=== PATIENT | female | born 1970 | race Two or more races ===

== ENCOUNTER 2019-02-24 03:27 | Emergency (ER) | payer SELFPAY ==
[~2019-02-24] VITALS: Ht 170.2 cm; Wt 95.3 kg
[2019-02-24 03:43] VITALS: BP 160/81
[2019-02-24 04:08] LABS: Basophils # (auto) 0 uL; Basophils % (auto) 0.6 % (0.0-2.0); Eosinophils # (auto) 0.2 uL; Eosinophils % (auto) 2.2 % (0.0-7.0); Hematocrit 39.4 % (36.0-46.0); Hemoglobin 13.8 g/dL (12.2-16.2); Lymphocytes # (auto) 2.5 uL; Lymphocytes % (auto) 33.4 % (10.0-50.0); Mean Corpuscular Hemoglobin 32.2 pg (28.0-32.0); Mean Corpuscular Hgb Conc. 35.1 g/dL (32.0-36.0); Mean Corpuscular Volume 91.7 fL (80.0-100.0); Monocytes # (auto) 0.6 uL; Monocytes % (auto) 8.1 % (0.0-12.0); Neutrophils # (auto) 4.1 uL; Neutrophils % (auto) 55.7 % (37.0-80.0); Platelet Count (auto) 304 10^3/uL (140-450); Red Blood Cells 4.29 10^6/uL (4.0-5.20); Red Cell Distribution Width 12.6 % (11.8-14.3); White Blood Cell 7.4 10^3/uL (4.4-10.8)
[2019-02-24 04:22] LABS: Albumin 3.6 g/dL (3.4-5.0); Anion Gap 8 (5-15); Calcium 8.1 mg/dL (8.5-10.1); Carbon Dioxide 26 mmol/L (21-32); Chloride 108 mmol/L (98-107); Glucose 114 mg/dL (74-106); Magnesium 2.1 mg/dL (1.6-2.6); Potassium 3.3 mmol/L (3.5-5.1); Sodium 142 mmol/L (136-145)
[2019-02-24 04:23] LABS: INR 0.95 (0.9-1.15); Partial Thromboplastin Time 24.8 sec (23.64-32.05)
[2019-02-24 04:29] LABS: Alanine Aminotransferase 25 U/L (13-56); Alkaline Phosphatase 105 U/L (45-117); Aspartate Aminotransferase 22 U/L (15-37); Bilirubin, Total 0.3 mg/dL (0.2-1.0); Blood Urea Nitrogen 13 mg/dL (7-18); GFR African American 126 mL/min; GFR Non-African American 104 mL/min; Total Protein 7.4 g/dL (6.4-8.2)
== END 2019-02-24 08:25 | disposition left against medical advice (07) ==
LOC: ER 03:29
DX: R07.89 Other chest pain (principal); Z53.29 Procedure and treatment not carried out because of patient's decision for other reasons
CPT/HCPCS: 36415; 71046; 80053; 83735; 83880; 84484; 85025; 85610; 85730; 93005